=== PATIENT | male | born 1950 | race Two or more races ===

== ENCOUNTER 2021-05-21 13:30 | Emergency (ER) | payer OTHER ==
[~2021-05-21] VITALS: Ht 172.7 cm; Wt 80.0 kg
[2021-05-21] MEDS ORDERED: LEVETIRACETAM 1000MG PREMIX 100 ML IV ONE (14:00)
[2021-05-21] MEDS ORDERED: SODIUM CHLORIDE 0.9% 500 ML IV ONE (14:30)
[2021-05-21 14:44] LABS: HEMATOCRIT. 39.1 % (42.0-52.0); HEMOGLOBIN. 13.3 g/dL (14.0-18.0); MEAN CORPUSCULAR HEMOGLOBIN 30.7 pg (28.0-32.0); MEAN CORPUSCULAR VOLUME 90.3 fL (80.0-94.0); MEAN PLATELET VOLUME 8.9 fl (7.4-10.4); PLATELET 155 x1000/uL (130-400); RED BLOOD CELL COUNT 4.33 mill/uL (4.7-6.1); RED CELL DISTRIBUTION WIDTH 13.2 % (11.6-14.6)
[2021-05-21 14:48] LABS: CHLORIDE 106 mEq/L (98-107)
[2021-05-21 14:52] LABS: ETHANOL BLOOD < 10 mg/dL; INR 1.1; PROTHROMBIN TIME 11.3 sec (9.6-11.0)
[2021-05-21 14:58] LABS: LDL CHOLESTEROL 137 mg/dL (5-100)
[2021-05-21 15:02] LABS: CREATINE KINASE 168 IU/L (39-308)
[2021-05-21] MEDS ORDERED: IOHEXOL-350 100 ML BOTTLE ONE (15:05)
[2021-05-21 15:07] LABS: PLATELET ESTIMATE NORMAL
[2021-05-21 18:33] VITALS: BP 173/62
== END 2021-05-21 18:40 | disposition short-term general hospital (02) ==
LOC: ER 13:47 → CANBEDREQ 18:34 → ER 18:40
DX: R56.9 Unspecified convulsions (principal); I10 Essential (primary) hypertension; E78.5 Hyperlipidemia, unspecified; Z86.73 Personal history of transient ischemic attack (TIA), and cerebral infarction without residual deficits
CPT/HCPCS: 31500; 36415; 70450; 70496; 70498; 71045; 80053; 80320; 82550; 83690; 83721; 83880; 84484; 85025; 85610; 93005; 96361; 96365; 99291; J1953; J7040; Q9967; G0480